=== PATIENT | female | born 1995 | race Caucasian/White ===

== ENCOUNTER 2024-08-09 12:11 | Outpatient (AMB) | payer OTHER, SELFPAY ==
--- NOTE | 2024-08-09 12:16 | A.OFFPC_ITS ---
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 ?? Prior PCP:? Pediatrics Last office visit/CPE:? > 2 yrs Acute issue(s):? Dif concentrating and pt says she was on Adderall long and short actig. Anxiety and was on SSRI but cause aggression and added the short acting Adderall. ?? PMHx:? Diff Concetrating and Pt states ADHD, Anxiety, SurgHx:? . FHx:? Mom: Depression. Brother: Depression. Dad: EtOH/Substance abuse SocHx:? Nonsmoker EtOH None. MJ Daily. 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 1. Little interest or pleasure in doing things: several days 2. Feeling down, depressed, or hopeless: more than half the days 3. Trouble falling or staying asleep, or sleeping too much: more than half the days 4. Feeling tired or having little energy: more than half the days 5. Poor appetite or overeating: more than half the days 6. Feeling bad about yourself - or that you are a failure or have let yourself or your family down: more than half the days 7. Trouble concentrating on things, such as reading the newspaper or watching television: nearly every day 8. Moving or speaking so slowly that other people could have noticed. Or the opposite - being so fidgety or restless that you have been moving around a lot more than usual: several days 9. Thoughts that you would be better off or of hurting yourself in some way: not at all Total score: 15 Depression Screening Interpretation: Positive Depression Screening Done: Yes 31317 - PHQ-9 Billing: Yes Source: Developed by Drs. Benedicto Salazar, Jessica Perez, Ulysses Dhillon and colleagues, with an educational anju from [employer]. Thrive Questionnaire Date Thrive assessed: 08/09/24 I am a: Patient What is your living situation today?: I have a steady place to live Within the past 12 months, did the food you bought not last and you didn't have the money to get more?: Never true Within the past 12 months, did you worry whether your food would run out before you got money to buy more?: Never true Do you have trouble paying for medicines?: No Do you have trouble getting transportation to medical appointments?: No Do you have trouble paying your heating and electricity bill?: No Do you have trouble taking care of your child, family member or friend?: No Do you have trouble with day-to-day activities such as bathing, preparing meals, shopping, managing finances, etc.?: No Are you currently unemployed and looking for a job?: No Are you interested in more education?: No Please select the resources that you would like help with: None Currently or been in a relationship where the following occur: I choose not to answer THRIVE Score: 0 AUDIT C Alcohol Use Questionnaire (AUDIT-C) 1. How often do you have a drink containing alcohol?: Never 3. How often do you have six or more drinks on one occasion?: Never Total Score: 0 FCO-7 AMB Questionnaire FCO-7 Date FCO - 7 assessed: 08/09/24 Feeling nervous, anxious, or on edge: 1 = Several days Not being able to stop or control worryin = Several days Worrying too much about different things: 1 = Several days Trouble relaxin = Several days Being so restless that it is hard to sit still: 1 = Several days Becoming easily annoyed or irritable: 2 = More than half the days Feeling afraid as if something awful might happen: 1 = Several days Total FCO-7 score (0-4 normal; 5-9 mild; 10-14 moderate; 15-21 severe): 8 Source: Developed by Drs. Benedicto Salazar, Jessica Perez, Ulysses Dhillon and colleagues, with an educational anju from [employer]. FCO-7 Assessment Billing FCO-7 Assessment Tool: FCO-7 Assessment 72162 Review of Systems Const Denies chills, Denies fatigue, Denies fever(s), Denies headache(s) and Denies weakness ENT Denies dizziness, Denies headache(s) and Reports sore throat Card Denies chest pain, Denies lightheadedness, Denies dyspnea and Denies other (Palpitations) Resp Denies cough, Denies dyspnea, Denies wheezing and Denies other ( shortness of breath) Musc Denies numbness and Denies tingling Neuro Denies dizziness, Denies headache(s), Denies numbness, Denies tingling, Denies paresthesias and Denies weakness Psych Denies anxiety and Denies depression Endo Denies fatigue Aller/Immun Denies wheezing Physical exam (Primary Care) Vital Signs: Last Vital Signs Temp 98.3 F 08/09/24 12:23 Pulse 89 08/09/24 12:23 Resp 16 08/09/24 12:23 BP 106/64 08/09/24 12:23 Pulse Ox 98 08/09/24 12:23 Oxygen Delivery Method Room Air 08/09/24 12:23 BMI result Body Mass Index 39.9 Tobacco/Smoking Status: Tobacco use Status Tobacco use date assessed 08/09/24 08/09/24 12:25 Patient Tobacco Use Status Never used Tobacco 08/09/24 12:25 e-Cigarette/Vaping Use Never Used 08/09/24 12:25 PHQ-9: PHQ-9 Score PHQ-9: Total score 15 08/09/24 12:25 Depression Screening Interpretation: Positive Thrive Assessment: Date of Thrive Assessment Date Thrive assessed 08/09/24 08/09/24 12:25 Currently or been in a relationship where the following occur: I choose not to answer Const General: no acute distress and well developed Nutritional Appearance: well nourished Orientation/consciousness: patient oriented x3 HENMT Head: Yes normocephalic and Yes atraumatic Eyes General: appearance normal, both eyes and all related structures Pupils: Equal, round and reactive pupils present EOM: EOMs intact bilaterally Resp Effort & Inspection: normal respiratory effort Auscultation: clear to auscultation bilaterally Cardio Rate: regular rate Rhythm: regular rhythm Heart sounds: S1 normal heart sound present, S2 normal heart sound present, no gallops, no murmurs and no rubs Neuro General: patient oriented x3 and gait normal Cranial nerves: Yes Equal, round and reactive pupils present Psych Affect: normal affect Results AMB Rapid Strep AMB Rapid Strep Positive Last Edit by TONIA Osuna on 08/09/24 13:03 Coding Level of Care Code New Pt Level 4 (17976) Diagnoses Difficulty concentrating R41.840 Anxiety F41.9 Sore throat J02.9 Laboratory exam ordered as part of routine general medical examination Z00.00 Additional Codes FCO-7 Assessment Billing - FCO-7 Assessment Tool: FCO-7 Assessment 91685 ([id number]) PHQ-9 - 97216 - PHQ-9 Billing: Yes ([id number]) Assessment & Plan Assessment & Plan (1) Difficulty concentrating: Code(s): R41.840 - Attention and concentration deficit Category: Medical Plan: Awaiting?prior?PCPs?notes?regarding?diagnosis?of?ADD/ADHD We?discussed?if?can?get?established,?we?need?to?have?evaluated.??And?patient?und erstands. (2) Anxiety: Code(s): F41.9 - Anxiety disorder, unspecified Category: Medical Plan: Patient?seems?to?feel?that?this?is?secondary?to?difficulty?concentrating Awaiting?prior?notes (3) Sore throat: Code(s): J02.9 - Acute pharyngitis, unspecified Category: Medical Plan: Patient?has?mild?cough?but?also?has?significant?posterior?pharyngeal?erythema ?with?patchy?exudates. Rapid?strep: POSITIVE Starting?amoxicillin?500?mg?b.i.d. Advised?hand?hygiene?and?avoid?cooking?and?using?utensils?for?children.??The?chi ldren?are?sick?also?and?should?checked?for?strep - patient?agrees (4) Laboratory exam ordered as part of routine general medical examination: Code(s): Z00.00 - Encounter for general adult medical examination without abnormal findings Category: Medical Plan: Check labs Orders: Orders Comprehensive [place]. Panel Fast Today Z00.00 - Encounter for general adult medical examination without abnormal findings Complete Blood Count Auto Diff Today Z00.00 - Encounter for general adult medical examination without abnormal findings Microalbumin, Random (w Creat) Today I10 - Essential (primary) hypertension Lipid Panel Today Z00.00 - Encounter for general adult medical examination without abnormal findings UA and rflx microscopic Today Z00.00 - Encounter for general adult medical examination without abnormal findings TSH reflex Free T4 Today Z00.00 - Encounter for general adult medical examination without abnormal findings AMB Rapid Strep Screen Today J02.9 - Acute pharyngitis, unspecified Medications: New amoxicillin 500 mg PO Q12H 10 days 20 tabs 0RF
[2024-08-09 12:23] VITALS: BP 106/64; PULSE 89; RESP 16; TEMP 36.8; O2SAT 98; BMI 39.9
== END 2024-08-09 13:02 | disposition home or self-care (01) ==
PROVIDERS: PCP Pediatrics; Visit Provider Family Medicine
DX: R41.840 Attention and concentration deficit (principal); F41.9 Anxiety disorder, unspecified; J02.9 Acute pharyngitis, unspecified; Z00.00 Encounter for general adult medical examination without abnormal findings

== ENCOUNTER → 2024-08-09 12:11 | Outpatient (BNVA) | payer OTHER, SELFPAY | PROVIDERS: PCP Pediatrics; Visit Provider Family Medicine | DX: F41.9 Anxiety disorder, unspecified (principal); J02.9 Acute pharyngitis, unspecified; R41.840 Attention and concentration deficit | CPT/HCPCS: 87880; 96127; 99202 ==

== ENCOUNTER 2025-01-04 11:25 | Outpatient (REF) | payer OTHER, SELFPAY ==
--- OUTSIDE RECORDS SUMMARY | 2025-01-04 13:41 | XMS_ITS | Encounter Summary ---
Author Organization [facility] Address [address] [place] [id number] Phone Care Team Providers Care Paster Operator Name Role Phone Valeria Carter MD Primary Care Provider [phone] Encounter Details Date Type Department Care Team (Late st Contact Info) Description 04/21/2017 Conversion Encounter [facility] - [address], [address] [place] [address] Valeria Carter MD [address] [place] [address] Social History Tobacco Use Types Packs/Day Years Used Date Smoking Tobacco: Never Assessed Comments Unknown Sex and Gender Information Value Date Recorded Sex Assigned at Not on file Legal Sex Female 9:38 AM EST Gender Identity Not on file Sexual Orientation Not on file documented as of this encounter Plan of Treatment Not on file documented as of this encounter Visit Diagnoses Not on filedocumented in this encounter Care Teams Paster Operator Relationship Specialty Start Date End Date Valeria Carter MD [address] [place] [address] PCP - General 11/03/16 07/19/22 documented as of this encounter
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
[2025-01-04 14:14] LABS: MANUAL DIFF FLAG NO
[2025-01-04 14:17] LABS: Appearance Urine Clear; Color Urine Yellow; Glucose Urine UA Negative (Negative); Leukocyte Esterase Urine Negative (Negative); Nitrite Urine Negative (Negative); Urine Blood Negative (Negative); Urine Ketones Negative (Negative); Urine Protein Negative (Neg-Trace)
[2025-01-04 14:22] LABS: Basophils Absolute Auto 0.1 X10*3/uL (0.0-0.2); Basophils Percent Auto 0.8 % (0-2); Eosinophils Absolute Auto 0.2 X10*3/uL (0.0-0.4); Eosinophils Percent Auto 1.8 % (0-4); Hematocrit 41.2 % (37.0-47.0); Hemoglobin 13.8 g/dl (12.0-16.0); Imm Gran Abs Auto 0.03 X10*3/uL (0.00-0.03); Imm Gran Pct Auto 0.4 % (0.0-0.4); Lymphocytes Absolute Auto 2.2 X10*3/uL (1.2-4.9); Lymphocytes Percent Auto 25.9 % (20-40); Mean Corpuscular HGB Conc 33.5 g/dl (31.0-35.0); Mean Corpuscular Hemoglobin 28.6 pg (27.0-33.0); Mean Corpuscular Volume 85.3 fL (80.0-98.0); Mean Platelet Volume 10.8 fL (9.4-12.3); Monocytes Absolute Auto 0.7 X10*3/uL (0.1-1.2); Monocytes Percent Auto 8.4 % (2-11); Neutrophils Absolute Auto 5.3 x10*3/uL (2.0-8.3); Neutrophils Percent Auto 62.7 % (45-73); Platelet Count 322 X10*3/uL (160-400); Red Blood Count 4.83 X10*6/uL (4.20-5.50); Red Cell Distribution Width 14.3 % (11.0-16.0); White Blood Count 8.5 X10*3/uL (4.8-10.8)
[2025-01-04 14:49] LABS: Alanine Aminotransferase 41 U/L (0-31); Albumin Level 4.1 g/dL (3.5-5.0); Alkaline Phosphatase 95 U/L (39-117); Anion Gap 6 (12-20); Aspartate Amino Transferase 28 U/L (5-31); Bilirubin Total 0.5 mg/dL (0.0-1.0); Blood Urea Nitrogen 9 mg/dL (9-16); Calcium 9.2 mg/dL (8.4-10.2); Carbon Dioxide 28 mmol/L (22-29); Chloride 108 mmol/L (96-108); Cholesterol 182 mg/dL (<200); Estimated Glomerular Filt Rate > 60; Glucose Fasting 91 mg/dL (60-99); HDL Cholesterol 44 mg/dL (>40); LDL Cholesterol Calculated 112 mg/dL (<100); Potassium 4.2 mmol/L (3.3-5.1); Sodium 138 mmol/L (135-145); Total Protein 7.2 g/dL (6.5-8.0); Triglycerides 130 mg/dL (<150)
[2025-01-04 14:51] LABS: TSH reflex Free T4 0.67 uIU/mL (0.32-4.0)
[2025-01-04 14:55] LABS: Creatinine Urine 100.61 mg/dL; Microalbumin Urine < 5.0 mg/L
== END 2025-01-04 11:26 | disposition home or self-care (01) ==
LOC: HO.WFDLDS 11:25
PROVIDERS: Visit Provider Family Medicine
DX: Z00.00 Encounter for general adult medical examination without abnormal findings (principal); I10 Essential (primary) hypertension
CPT/HCPCS: 36415; 80053; 80061; 81003; 82570; 84443; 85025

== ENCOUNTER 2025-01-25 10:54 | Outpatient (AMB) | payer OTHER, SELFPAY ==
--- NOTE | 2025-01-25 10:56 | A.OFFPC_ITS ---
Vital Signs 01/25/25 11:01 Height 5 ft 1 in Weight 219 lb BMI 41.4 BP 112/68 Blood Pressure Location Rt brachial Position Sitting Pulse 93 Pulse Source Pulse Oximeter Temp 98.6 F Temp Source Temporal Artery Scan Pulse Oximetry (%) 97 Oxygen Delivery Method Room Air Intake Visit Reasons: Physical / Dr. Aguilar PtDomitila Intake Note: Malathi presents in the office for her annual physical. Allergies Seasonal Allergies Allergy (Verified 01/25/25 10:59) Congestion Tobacco use date assessed: 01/25/25 Dental Screening Dental Screen Date: 01/25/25 Did you have a dental visit in the last 12 months?: No Did you have a dental problem in the last 6 months where you did not have access to dental care?: No Was dental information given to patient?: Yes HPI HPI Comments History of Present Illness Details This is a 29 year old female with a past medical history of anxiety and difficulty concentrating presenting for a physical exam. Patient reports she was on Adderall managed by her electronics installer. She signed a release for records, but they have not been received yet. This was discussed at her initial visit with her primary care provider. I advised the patient to call the office in a couple of weeks to see if the records are reviewed, and schedule a follow up with her primary care provider after that. She tried fluoxetine in the past for anxiety which caused aggression. She is due for a dental, optometry and gynecology exam. She will schedule these. ALT is mildly elevated. The remainder of her lab results are satisfactory. Denies abdominal pain, nausea, vomiting, jaundice or unexplained weight loss. She does have a lot of high cholesterol and processed foods in her diet. She drinks alcohol once a month or less, and she does not been strength. She does not take a lot of [id number] pain relievers. We discussed lifestyle modifications. Advised patient to return to the lab in a month to repeat tests and check hepatitis a, B and C tests. ROS: Constitutional: No unexplained weight loss, fever, chills or night sweats. Eyes: No vision changes, blurry vision, double vision, eye pain, eye redness, eye discharge. ENT: No hearing loss, sneezing, congestion, runny nose or sore throat. Respiratory: No shortness of breath, cough or sputum production. Cardiovascular: No chest pain, chest pressure or chest discomfort. No palpitations or pedal edema. Gastrointestinal: No anorexia, nausea, vomiting or diarrhea. No abdominal pain or blood in stool. Genitourinary: No dysuria, hematuria, urinary frequency. Neurologic: No headache, dizziness, syncope, unilateral weakness, ataxia, numbness or tingling in the extremities. Musculoskeletal: No muscle pain, back pain, joint pain or swelling. Hematologic/Lymphatics: No bleeding or bruising. No painful lymph nodes. Skin: No rash or new or changing moles. Endocrine: No cold or heat intolerance. No polyuria or polydipsia. Psychiatric: Denies depression, SI or HI. Physical exam: Constitutional: Alert, in no distress. Head: Normocephalic. Eyes: Pupils are equal, round and reactive to light. Extraocular muscles intact. Ear, Nose and Throat: Canals clear. TMs normal. Normal nasal mucosa. No nasal discharge. No oral lesions. Neck: Supple, Full range of motion. No lymphadenopathy. No palpable thyroid masses. Respiratory: Clear to auscultation. Cardiovascular: S1 S2 regular. No murmurs. Gastrointestinal: Abdomen soft, non-tender, non-distended. Normal bowel sounds. No palpable masses. Neurologic: No focal neurological deficits. Symmetric patellar reflexes. Moves all extremities spontaneously. Sensation intact bilaterally. Skin: No rashes Musculoskeletal: No gross deformities. Normal range of motion. Extremities: Warm and well perfused. No clubbing, cyanosis or edema. 3+ peripheral pulses bilaterally. Psychiatric: Normal mood and affect [facility] Medical History (Updated 01/25/25 @ 11:43 by MIGUEL ÁNGEL Pendleton) Routine physical examination Elevated liver function tests section wound seroma, Family History Paternal Grandfather Cancer Paternal Uncle Cancer Father Substance abuse Social History (Updated 01/25/25 @ 11:00 by Yulissa Burroughs MA) Housing: House Alcohol intake: never Patient Tobacco Use Status: Never used Tobacco e-Cigarette/Vaping Use: Never Used Substance Use Type: Marijuana service: No Current occupational status: employed Current occupation: [employer] Current occupational exposures/hazards: No Cognitive needs: No Hearing needs: No Vision needs: Yes Questionnaire PHQ-9 Over the last 2 weeks, how often have you been bothered by any of the following problems? 1. Little interest or pleasure in doing things: several days 2. Feeling down, depressed, or hopeless: not at all 3. Trouble falling or staying asleep, or sleeping too much: several days 4. Feeling tired or having little energy: several days 5. Poor appetite or overeating: not at all 6. Feeling bad about yourself - or that you are a failure or have let yourself or your family down: not at all 7. Trouble concentrating on things, such as reading the newspaper or watching television: several days 8. Moving or speaking so slowly that other people could have noticed. Or the opposite - being so fidgety or restless that you have been moving around a lot more than usual: several days 9. Thoughts that you would be better off or of hurting yourself in some way: not at all Total score: 5 Depression Screening Interpretation: Positive Depression Screening Follow-up: Other (waiting on medical records and sleep dysfunction is due to 3-year-old sleeping in her bed) Depression Screening Done: Yes 67339 - PHQ-9 Billing: Yes Source: Developed by Drs. Benedicto Salazar, Jessica Perez, Ulysses Dhillon and colleagues, with an educational anju from [employer]. Thrive Questionnaire Date Thrive assessed: 01/25/25 I am a: Patient What is your living situation today?: I have a steady place to live Within the past 12 months, did the food you bought not last and you didn't have the money to get more?: Never true Within the past 12 months, did you worry whether your food would run out before you got money to buy more?: Never true Do you have trouble paying for medicines?: No Do you have trouble getting transportation to medical appointments?: No Do you have trouble paying your heating and electricity bill?: No Do you have trouble taking care of your child, family member or friend?: No Do you have trouble with day-to-day activities such as bathing, preparing meals, shopping, managing finances, etc.?: No Are you currently unemployed and looking for a job?: No Are you interested in more education?: No Please select the resources that you would like help with: None Currently or been in a relationship where the following occur: No concerns reported THRIVE Score: 0 AUDIT C Alcohol Use Questionnaire (AUDIT-C) 1. How often do you have a drink containing alcohol?: Never Total Score: 0 Score Reviewed/Action Taken: No FCO-7 AMB Questionnaire FCO-7 Date FCO - 7 assessed: 01/25/25 Feeling nervous, anxious, or on edge: 2 = More than half the days Not being able to stop or control worryin = Not at all Worrying too much about different things: 1 = Several days Trouble relaxin = Several days Being so restless that it is hard to sit still: 0 = Not at all Becoming easily annoyed or irritable: 1 = Several days Feeling afraid as if something awful might happen: 0 = Not at all Total FCO-7 score (0-4 normal; 5-9 mild; 10-14 moderate; 15-21 severe): 5 Source: Developed by Drs. Benedicto Salazar, Jessica Perez, Ulysses Dhillon and colleagues, with an educational anju from [employer]. FCO-7 Assessment Billing FCO-7 Assessment Tool: FCO-7 Assessment 84842 Physical exam (Primary Care) Vital Signs: Last Vital Signs Temp 98.6 F 01/25/25 11:01 Pulse 93 01/25/25 11:01 BP 112/68 01/25/25 11:01 Pulse Ox 97 01/25/25 11:01 Oxygen Delivery Method Room Air 01/25/25 11:01 BMI result Body Mass Index 41.4 Tobacco/Smoking Status: Tobacco use Status Tobacco use date assessed 01/25/25 01/25/25 11:05 Patient Tobacco Use Status Never used Tobacco 01/25/25 11:00 e-Cigarette/Vaping Use Never Used 01/25/25 11:00 PHQ-9: PHQ-9 Score PHQ-9: Total score 5 01/25/25 11:05 Depression Screening Interpretation: Positive Depression Screening Follow-up: Other (waiting on medical records and sleep dysfunction is due to 3-year-old sleeping in her bed) Thrive Assessment: Date of Thrive Assessment Date Thrive assessed 01/25/25 01/25/25 11:05 Currently or been in a relationship where the following occur: No concerns reported Coding Level of Care Code Est Pt Prev Care 18-39y(29757) Diagnoses Routine physical examination Z00.00 Elevated liver function tests R79.89 Anxiety F41.9 Difficulty concentrating R41.840 Additional Codes FCO-7 Assessment Billing - FCO-7 Assessment Tool: FCO-7 Assessment 80220 ([id number]) PHQ-9 - 93185 - PHQ-9 Billing: Yes ([id number]) Assessment & Plan Assessment & Plan (1) Routine physical examination: Code(s): Z00.00 - Encounter for general adult medical examination without abnormal findings Category: Medical (2) Elevated liver function tests: Code(s): R7.89 - Other specified abnormal findings of blood chemistry Category: Medical (3) Anxiety: Code(s): F41.9 - Anxiety disorder, unspecified Category: Medical (4) Difficulty concentrating: Code(s): R41.840 - Attention and concentration deficit Category: Medical Plan Patient is seen today for a routine physical. As part of this visit we reviewed the following issues, which are considered and essential part of preventative health in this age group: - Breast Cancer screening - Annual Assistant Professor Nurse Education exam - Blood pressure screening - Cholesterol screening - Osteoporosis prevention including calcium/vitamin D intake, weight bearing exercise & smoking cessation - Nutritional and exercise counseling - Counseling of injury prevention including fire prevention, smoke alarms and seat belt usage - Screening for depression - Prevention of and/or testing for infectious diseases - Education about skin cancer - Recommendations about immunizations - Recommendation of an eye exam - Screening for substance abuse - Genetic cancer risk screening Orders: Orders Alanine Aminotransferase 4 Weeks R7 - Other specified abnormal findings of blood chemistry Aspartate Amino Transferase 4 Weeks R7.89 - Other specified abnormal findings of blood chemistry Hepatitis A,B,C Profile 4 Weeks R7. - Other specified abnormal findings of blood chemistry Hepatitis A IgM 4 Weeks R7.89 - Other specified abnormal findings of blood chemistry Patient Instructions: Repeat labs in 4 weeks. Please call the office the first week of February to see if your records were received and then schedule appointment with Dr. Gaffney when the office receives them.
[2025-01-25 11:01] VITALS: BP 112/68; PULSE 93; TEMP 37; O2SAT 97; BMI 41.4
--- OUTSIDE RECORDS SUMMARY | 2025-01-25 12:03 | XMS_ITS | Encounter Summary ---
Author Organization [facility] Address [address] [place] [phone] Phone Care Team Providers Care Programmer Developer Name Role Phone Unavailable Primary Care Provider Unavailabl e Reason for Visit * Reason Onset Date Comments [facility] Request 01/22/2025 Encounter Details Date Type Department Care Team ([facility] st Contact Info) Description 01/22/2025 Telephone [facility] [address] [place] [address] Phoenix Rg MD [address] [place] [address] [facility] Record Request Social History Tobacco Use Types Packs/Day Years Used Date Smoking Tobacco: Never Smokeless Tobacco: Never Comments:Counseled on mariju ronnie use Alcohol Use Standard Drinks/Week Comments No [...] on file documented as of this encounter Miscellaneous Notes * Telephone Encounter - Angely Montilla - 01/24/2025 4:36 PM EDT Printed and mailed records to: [facility] [address] [place] [id number] * Telephone Encounter - Jose Hilario - 01/22/2025 1:27 PM EDT Release received and scanned, please send records. documented in this encounter Plan of Treatment Not on file documented as of this encounter Visit Diagnoses Not on filedocumented in this encounter
--- OUTSIDE RECORDS SUMMARY | 2025-01-25 12:03 | XMS_ITS | Clinical Summary ---
Author Organization [facility] Address [address] [place] [phone] Phone Care Team Providers Care Manager Global Communications Name Role Phone Unavailable Primary Care Provider [...] protocol Gestational diabetes mellitus (GDM) in [facility] 04/26/2019 Overview (04/01/2020): 3 hour [...] Fluctuating weight over time, BMI 95-97%ile from 8648-3624. Now 92nd. Last labs 2013 normal. Last [...] Fluctuating weight over time, BMI 95-97%ile from 6293-3263. Now 92nd. Last labs 2013 normal. Weight loss 12/27/2015 10/23/2019 Irregular menstrual bleeding 09/17/2015 10/23/2019 Encounters Date Type Department Care Team Description 01/22/2025 Telephone [facility] - [address] [id number] [place] Rg MD [facility] [place] Request from Last 3 Months Immunizations Immunization Administration Dates Next Due DTaP [...] 01/15/2020 10/23/2019, 05/25/2014 Influenza Vaccines (#1) 2024 06/22/20, 07/01/2017, 06/07/2015, Additional history exists COVID-19 Vaccine ( season) 2024 11/13/2021, 10/23/2021 DTaP,Tdap,and Td Vaccines (9 - Td or Tdap) 03/27/2032 03/27/2022, 05/12/2019, 09/04/2008, Additional history exists Hepatitis B Vaccines Completed 10/08/1997, 01/11/1997, 1996 HIB Vaccines Completed 04/22/1998, 02/1997, 05/07/1997, Additional history exists IPV Vaccines Completed [...] complete this topic Procedures * Due to [place] state law, this organization might not be sharing sensitive test results. Procedure Name Priority Date/Time Associated Diagnosis Comments CHLAMYDIA TRACHOMATIS, AMPLIFIED Routine 07/01/2017 12:01 PM EDT Screening for chlamydial disease from Last 3 Months or Most Recently Relevant to Health Maintenance Results * Due to [place] state law, this organization might not be sharing sensitive test results. * Chlamydia trachomatis, Amplified (07/01/2017 12:01 PM EDT) Urine 07/01/2017 12:0 1 PM EDT us Valeria Carter MD LAB BLOOD ORDERABLES Final Res ult NONE from Last 3 Months or Most Recently Relevant to Health Maintenance
--- OUTSIDE RECORDS SUMMARY | 2025-01-25 12:03 | XMS_ITS | Encounter Summary ---
Author Organization [facility] Address [address] [place] [phone] Phone Care Team Providers Care Waste Cotton Cleaner Name Role Phone Valeria Carter MD Primary Care Provider [phone] Encounter Details Date Type Department Care Team (Late st Contact Info) Description 04/21/2017 Conversion Encounter [facility] Pediatric[facility] - [address], [address] [place] [address] Valeria Carter MD [address] [place] [address] Social History Tobacco Use Types Packs/Day Years [...] on filedocumented in this encounter Care Teams Waste Cotton Cleaner Relationship Specialty Start Date End Date Valeria Carter MD [address] [place] [address] PCP - General 11/03/16 07/19/22 documented as of this encounter
== END 2025-01-25 11:40 | disposition home or self-care (01) ==
LOC: HO.HMCFM 10:54
PROVIDERS: PCP Family Medicine; Visit Provider Physician Assistant Medical
DX: Z00.00 Encounter for general adult medical examination without abnormal findings (principal); R79.89 Other specified abnormal findings of blood chemistry; F41.9 Anxiety disorder, unspecified; R41.840 Attention and concentration deficit

== ENCOUNTER → 2025-01-25 10:54 | Outpatient (BNVA) | payer OTHER, SELFPAY | PROVIDERS: PCP Family Medicine; Visit Provider Physician Assistant Medical | DX: Z00.00 Encounter for general adult medical examination without abnormal findings (principal); R79.89 Other specified abnormal findings of blood chemistry; F41.9 Anxiety disorder, unspecified; R41.840 Attention and concentration deficit | CPT/HCPCS: 96127; 99395 ==

== ENCOUNTER 2025-04-17 15:42 | Outpatient (AMB) | payer OTHER, SELFPAY ==
--- NOTE | 2025-04-17 15:39 | MHC.PC.OV ---
Intake Visit Reasons: Medication review Intake Note: follow up for adhd medication patient was also informed she must sign a adhd med contract Industrial Economist Required: No Allergies Seasonal Allergies Allergy (Verified 04/17/25 15:40) Congestion Tobacco use date assessed: 01/25/25 Dental Screening Dental Screen Date: 01/25/25 HPI Medication review HPI Details 29 y/o female presents to f/u difficulty concentrating via telemedicine. Received patient's prior records which 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 She had been on Adderall XR 30 mg daily with good affect. 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 Current occupational exposures/hazards: No Cognitive needs: No Hearing needs: No Vision needs: Yes Questionnaire Thrive Questionnaire Date Thrive assessed: 01/25/25 I am a: Patient What is your living situation today?: I have a steady place to live Within the past 12 months, did the food you bought not last and you didn't have the money to get more?: Never true Within the past 12 months, did you worry whether your food would run out before you got money to buy more?: Never true Do you have trouble paying for medicines?: No Do you have trouble getting transportation to medical appointments?: No Do you have trouble paying your heating and electricity bill?: No Do you have trouble taking care of your child, family member or friend?: No Do you have trouble with day-to-day activities such as bathing, preparing meals, shopping, managing finances, etc.?: No Are you currently unemployed and looking for a job?: No Are you interested in more education?: No Please select the resources that you would like help with: None Currently or been in a relationship where the following occur: No concerns reported THRIVE Score: 0 AUDIT C Alcohol Use Questionnaire (AUDIT-C) 3. How often do you have six or more drinks on one occasion?: Never Total Score: 0 FCO-7 AMB Questionnaire FCO-7 Date FCO - 7 assessed: 01/25/25 Source: Developed by Drs. Benedicto Salazar, Jessica Perez, Ulysses Dhillon and colleagues, with an educational anju from [employer]. Review of Systems Const Denies chills, Denies fatigue, Denies fever(s), Denies headache(s) and Denies weakness ENT Denies dizziness and Denies headache(s) Card Denies dyspnea Resp Denies cough, Denies dyspnea, Denies wheezing and Denies other (shortness of breath) Musc Denies numbness and Denies tingling Neuro Denies dizziness, Denies headache(s), Denies numbness, Denies tingling and Denies weakness Psych Denies anxiety and Denies depression Endo Denies fatigue Aller/Immun Denies wheezing Physical exam (Primary Care) Tobacco/Smoking Status: Tobacco use Status Tobacco use date assessed 01/25/25 04/17/25 15:42 Patient Tobacco Use Status Never used Tobacco 04/17/25 15:42 e-Cigarette/Vaping Use Never Used 04/17/25 15:42 Thrive Assessment: Date of Thrive Assessment Date Thrive assessed 01/25/25 04/17/25 15:42 Currently or been in a relationship where the following occur: No concerns reported Telehealth Telehealth Telehealth Platform: Telephone Location of provider rendering services: practice address Location of patient: address on file Patient Identification confirmed using: Name, : Yes Telehealth method: voice only Patient verbally consented to treatment: Yes Patient verbally consented to billing insurance company: Yes Patient informed of any privacy concerns related to visit: Yes Minutes spent on Phone/Video with Pt.: 5 Coding Level of Care Code Tele Est Pt Level 2 (10434) Diagnoses ADHD F90.9 Assessment & Plan Assessment & Plan (1) ADHD: Code(s): F90.9 - Attention-deficit hyperactivity disorder, unspecified type Category: Medical Plan: Received patient's prior records which 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 She had been on Adderall XR 30 mg daily with good affect. We discussed that we can start Adderall XR treatment once she has signed a treatment contract We discussed that we expect her to bring her medications with her to visits for random pill counts and also to expect random urine testing periodically. Patient understands We discussed that we would start at a lower dose and titrate upwards. Will start with Adderall XR 10 mg daily and follow-up in 3-4 weeks.
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
--- OUTSIDE RECORDS SUMMARY | 2025-04-17 16:04 | XMS_ITS | Clinical Summary ---
Author Organization [facility] Address [address] [place] [phone] Phone Care Team Providers Care Clinical Editor Name Role Phone Unavailable Primary Care Provider [...] per protocol Gestational diabetes mellitus (GDM) in [facility] 04/26/2019 Overview (04/01/2020): 3 hour gtt: [...] Fluctuating weight over time, BMI 95-97%ile from 3126-6803. Now 92nd. Last labs 2013 normal. Last [...] Fluctuating weight over time, BMI 95-97%ile from 4611-8038. Now 92nd. Last labs 2013 normal. Weight loss 12/27/2015 10/23/2019 Irregular menstrual bleeding 09/17/2015 10/23/2019 Encounters Date Type Department Care Team Description 01/22/2025 Telephone [facility] - [address] [address] [place] Rg MD [facility] Record Request from Last 3 Months Immunizations [...] 93 12/16/2020 10:41 AM EDT Temperature 37.2 C (98.9 F) 08/20/2020 1:52 PM EST Respiratory Rate 18 08/20/2020 1:52 PM EST [...] (3 - 3-dose series) 01/15/2020 10/23/2019, 05/25/2014 COVID-19 Vaccine ( - season) 2024 11/13/2021, 10/23/2021 Influenza Vaccines (#1) 2025 06/22/20 19, 07/01/2017, 06/07/2015, Additional history exists DTaP,Tdap,and Td Vaccines (9 - Td or [...] complete this topic Procedures * Due to [place] state law, this organization might not be sharing sensitive test results. Procedure Name Priority Date/Time Associated Diagnosis Comments CHLAMYDIA TRACHOMATIS, AMPLIFIED Routine 07/01/2017 12:01 PM EDT Screening for chlamydial disease from Last 3 Months or Most Recently Relevant to Health Maintenance Results * Due to [place] state law, this organization might not be sharing sensitive test results. * Chlamydia trachomatis, Amplified (07/01/2017 12:01 PM EDT) Urine 07/01/2017 12:0 1 PM EDT us Valeria Carter MD LAB MICROBIOLOGY - GENERAL ORD ERABLES Final Result NONE from Last 3 Months or Most Recently Relevant to Health Maintenance
== END 2025-04-17 16:05 ==
LOC: HO.HMCFM 15:42
PROVIDERS: PCP Family Medicine; Visit Provider Family Medicine
DX: F90.9 Attention-deficit hyperactivity disorder, unspecified type (principal)

== ENCOUNTER 2025-06-26 13:59 | Outpatient (AMB) | payer OTHER, SELFPAY ==
--- NOTE | 2025-06-26 14:30 | A.OFFPC_ITS ---
Vital Signs 06/26/25 14:40 Height 5 ft 1 in Weight 207 lb BMI 39.1 BP 100/62 Blood Pressure Location Rt brachial Position Sitting Respiration 16 Pulse 82 Pulse Source Pulse Oximeter Temp 97.5 F Temp Source Temporal Artery Scan Pulse Oximetry (%) 96 Oxygen Delivery Method Room Air Intake Visit Reasons: f/u ADHD Intake Note: Paula presents in the office today for a follow up to ADHD. Allergies Seasonal Allergies Allergy (Verified 06/26/25 14:40) Congestion Tobacco use date assessed: 06/26/25 Dental Screening Dental Screen Date: 06/26/25 Did you have a dental visit in the last 12 months?: No Did you have a dental problem in the last 6 months where you did not have access to dental care?: No Was dental information given to patient?: Patient declined HPI f/u ADHD HPI Details 29 y/o female presents today to f/u ADHD . Starting her on Adderall today. 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 Current occupational exposures/hazards: No Cognitive needs: No Hearing needs: No Vision needs: Yes Questionnaire Thrive Questionnaire Date Thrive assessed: 01/25/25 I am a: Patient What is your living situation today?: I have a steady place to live Within the past 12 months, did the food you bought not last and you didn't have the money to get more?: Never true Within the past 12 months, did you worry whether your food would run out before you got money to buy more?: Never true Do you have trouble paying for medicines?: No Do you have trouble getting transportation to medical appointments?: No Do you have trouble paying your heating and electricity bill?: No Do you have trouble taking care of your child, family member or friend?: No Do you have trouble with day-to-day activities such as bathing, preparing meals, shopping, managing finances, etc.?: No Are you currently unemployed and looking for a job?: No Are you interested in more education?: No Please select the resources that you would like help with: None Currently or been in a relationship where the following occur: No concerns reported THRIVE Score: 0 FCO-7 AMB Questionnaire FCO-7 Date FCO - 7 assessed: 01/25/25 Source: Developed by Drs. Benedicto Salazar, Jessica Perez, Ulysses Dhillon and colleagues, with an educational anju from [employer]. Review of Systems Const Denies chills, Denies fatigue, Denies fever(s), Denies headache(s) and Denies weakness ENT Denies dizziness and Denies headache(s) Card Denies dyspnea Resp Denies cough, Denies dyspnea, Denies wheezing and Denies other (shortness of breath) Musc Denies numbness and Denies tingling Neuro Denies dizziness, Denies headache(s), Denies numbness, Denies tingling and Denies weakness Psych Denies anxiety and Denies depression Endo Denies fatigue Aller/Immun Denies wheezing Physical exam (Primary Care) Vital Signs: Last Vital Signs Temp 97.5 F 06/26/25 14:40 Pulse 82 06/26/25 14:40 Resp 16 06/26/25 14:40 BP 100/62 06/26/25 14:40 Pulse Ox 96 06/26/25 14:40 Oxygen Delivery Method Room Air 06/26/25 14:40 BMI result Body Mass Index 39.1 Tobacco/Smoking Status: Tobacco use Status Tobacco use date assessed 06/26/25 06/26/25 14:43 Patient Tobacco Use Status Never used Tobacco 06/26/25 14:40 e-Cigarette/Vaping Use Never Used 06/26/25 14:40 Thrive Assessment: Date of Thrive Assessment Date Thrive assessed 01/25/25 06/26/25 14:32 Currently or been in a relationship where the following occur: No concerns reported Const General: well developed; No acute distress Nutritional Appearance: well nourished Orientation/consciousness: patient oriented x3 HENMT Head: Yes normocephalic and Yes atraumatic Eyes General: appearance normal, both eyes and all related structures Pupils: Equal, round and reactive pupils present EOM: EOMs intact bilaterally Resp Effort & Inspection: normal respiratory effort Neuro General: patient oriented x3 and gait normal Cranial nerves: Yes Equal, round and reactive pupils present Psych Affect: normal affect Coding Level of Care Code Est Pt Level 3 (82447) Diagnoses ADHD F90.9 Obesity E66.9 Assessment & Plan Assessment & Plan (1) ADHD: Code(s): F90.9 - Attention-deficit hyperactivity disorder, unspecified type Category: Medical Plan: Patient presents for follow-up ADHD. At last visit we had established her diagnosis of ADHD with her prior provider's notes. Patient has signed treatment contract today We reviewed possible adverse effects. She had been on this medication before and was taking Adderall XR 30 mg daily. Will start with Adderall XR 10 mg daily and follow-up in about a month. May need to titrate up. (2) Obesity: Code(s): E66.9 - Obesity, unspecified Category: Medical Plan: Patient has been working on weight loss and has lost about 12 lb since last visit Continue working on weight loss Medications: New dextroamphetamine-amphetamine 10 mg ER (Adderall XR) MassPat Verified. Partial Fill upon patient request. 10 mg PO QAM 30 caps 0RF 30 days F90.9 - Attention-deficit hyperactivity disorder, unspecified type
[2025-06-26 14:40] VITALS: BP 100/62; PULSE 82; RESP 16; TEMP 36.4; O2SAT 96; BMI 39.1
--- OUTSIDE RECORDS SUMMARY | 2025-06-26 16:58 | XMS_ITS | Clinical Summary ---
Author Organization [facility] Address [address] [facility] [address] [place] [phone] Phone Care Team Providers Care Fitting Room Inspector Name Role Phone Valeria Carter MD Primary [...] per protocol Gestational diabetes mellitus (GDM) in [facility] 04/26/2019 Overview (05/01/2019): 3 hour gtt: 99 [...] has [facility] her [facility] [place] [facility]. Robert vax today. Assessment & Plan (05/26/2019 [...] Fluctuating weight over time, BMI 95-97%ile from 3306-6576. Now 92nd. Last labs 2013 normal. Assessment [...] STATUS SCREENING (Once After 26 Yrs) 2022 INFLUENZA VACCINE (#1) 2025 9, 07/01/2017, 06/07/2015, Additional history exists COVID-19 VACCINE ( season) 2025 11/13/2021, 10/23/2021 Adult Td,Tdap Booster 03/27/2032 03/27/2022 [...] SEE NARRATIVE - 01/05/2019 3:14 PM EDT [address] [address] [place] [employer]: Cassandra Garcia MD MONOGRAM MACHINE OPERATOR Cytology Report FINAL DIAGNOSIS A. PAP SMEAR (SUREPATH) CE: SPECIMEN ADEQUACY: Satisfactory for evaluation; transformation zone absent/insufficient. INTERPRETATION: NEGATIVE FOR INTRAEPITHELIAL LESION OR MALIGNANCY. Coccobacilli consistent with shift in katherine Electronically Signed Out By: JEY Freitas(ASCP) The Pap test is a screening test [...] A: PAP SMEAR (SUREPATH) CE Patient Name: HUNG ADAME : 1995 (Age: 23) Sex: F Institution: [facility] Location: [facility] Date of Collection: 12/29/2018 Date of Reported: 01/05/2019 15:14 Results to: Mayra Oconnell MD us Mayra Oconnell MD CYTOLOGY ORDERABLES Final Result Performing Organization Address City/[facility] Co de Phone Number SEE NARRATIVE * Hepatitis C antibody, qualitative (11/29/2018 11:41 AM EDT) HCV Negative Negative [facility] Comment: This is a screening test and should be confirmed with molecular testing Blood 11/29/2018 11:4 1 AM EDT 11/29/2018 11:59 AM EDT us Yulissa Roca CNM LAB BLOOD ORDERABLES Final Resul t Performing Organization Address [facility] Co de Phone Number [facility] [address] [place] [address] from Last 3 Months or Most Recently Relevant to Health Maintenance Insurance [facility] [employer] [facility] Member Subscriber Plan / Payer (Ef fective 2017-Present) Name:Hung Adame Relation to Subscriber:Self Name:Hung Adame Payer ID:[id number] (NAIC) Type:Medicaid Address: [place] [id number] [employer]ILDR[employer] CHILDRENS ACO CHILDR[employer] ACO [employer] CHILDR[employer] CHILDREN ACO Advance Directives For more information, please contact: [phone] (9AM - 5PM [facility], Wednesday-Wednesday) Documents on File Type Date Recorded Patient Inspector Bullet Slugs Expl anation Healthcare Proxy 07/20/2019 10:50 AM * Full Code (Presumed) (Latest Code Status on File) Date Activated Date Inactivated Comments 07/16/2019 12:34 AM 07/19/2019 3:34 PM * Full Code (Presumed) Date Activated Date Inactivated Comments 07/14/2019 8:08 PM 07/16/2019 12:34 AM * Full Code (Presumed) Date Activated Date Inactivated Comments 07/09/2019 2:57 PM 07/09/2019 6:31 PM Care Teams Fitting Room Inspector Relationship Specialty Start Date End Date Valeria Carter MD [address] [place] [address] [address] [place] [address] [email or web address] PCP - General 06/29/17 Additional Source Comments The information contained in this document represents components of the legal health record. It is not the complete legal health record.[facility]
--- OUTSIDE RECORDS SUMMARY | 2025-06-26 16:58 | XMS_ITS | Encounter Summary ---
Author Organization [facility] Address [address] [place] [address] Phone Care Team Providers Care Woodworking Machinist Name Role Phone Valeria Carter MD Primary Care Provider Encounter Details Date Type Department Care Team (Late st Contact Info) Description 04/25/2019 Transcribe Orders [facility] Laboratory [address] [place] [address] Yanelis Lala, LEÓN [address] [facility], [address] [place] [address] [email or web address] Elevated glucose tolerance test Social History Tobacco Use Types Packs/Day Years Used Date Smoking Tobacco: Never Smokeless Tobacco: Never Alcohol Use Standard Drinks/Week Comments Not Currently 0 (1 standard drink = 0.6 oz pur e alcohol) Comments Yes Sex and Gender Information Value Date Recorded Sex Assigned at Female 04/12/2018 6:27 PM EDT Legal Sex Female 8:50 PM EDT Gender Identity Female 04/12/2018 6:27 PM EDT Sexual Orientation Not on file Occupation Industry Job Start Date Job End Date [employer] Not on file Not on file Not on file documented as of this encounter Plan of Treatment Not on file documented as of this encounter Procedures Procedure Name Priority Date/Time Associated Diagnosis Comments GLUCOSE TOLERANCE TEST, 3 HR Routine 04/25/2019 11:55 AM EDT Elevated glucose tolerance test documented in this encounter Results * (ABNORMAL) Glucose tolerance test, 3 hr (04/25/2019 11:55 AM EDT) FASTING GLUCOSE 99 70 - 110 mg/dL [facility] ONE HR GLUCOSE 216(H) 70 - 99 mg/dL [facility] TWO HR GLUCOSE 211(H) 70 - 99 mg/dL [facility] THREE HR GLUCOSE 175(H) 70 - 99 mg/dL [facility] Blood 04/25/2019 11:5 5 AM EDT 04/25/2019 11:59 AM EDT Yanelis Lala [facility] LAB BLOOD ORDERABLES Fin al Result [facility] [address] [place] [address] documented in this encounter Visit Diagnoses Diagnosis Elevated glucose tolerance test Impaired glucose tolerance test documented in this encounter Care Teams Woodworking Machinist Relationship Specialty Start Date End Date Valeria Carter MD [address] [facility], [address] [place] [address] [email or web address] PCP - General 06/29/17 documented as of this encounter Additional Source Comments The information contained in this document represents components of the legal health record. It is not the complete legal health record.[facility]
--- OUTSIDE RECORDS SUMMARY | 2025-06-26 16:58 | XMS_ITS | Encounter Summary ---
Author Organization [facility] Address [address] [place] [id number] Phone Care Team Providers Care Nutritional Services Host Name Role Phone Valeria Carter MD Primary Care Provider [phone] Encounter Details Date Type Department Care Team (Late st Contact Info) Description 07/15/2019 Procedure Pass [facility] L&D Procedures [address] [place] [address] Social History Tobacco Use Types Packs/Day Years [...] on filedocumented in this encounter Care Teams Nutritional Services Host Relationship Specialty Start Date End Date Valeria Carter MD [address] [facility] [address] [place] [address] PCP - General 06/29/17 documented as of this encounter Additional Source Comments The information contained in this document represents components of the legal health record. It is not the complete legal health record.[facility]
--- OUTSIDE RECORDS SUMMARY | 2025-06-26 16:58 | XMS_ITS | Clinical Summary ---
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 Now 92nd. Last labs 2013 normal. Last [...] Fluctuating weight over time, BMI 95-97%ile from 4313-6429. Now 92nd. Last labs 2013 normal. Weight [...] series) 01/15/2020 10/23/2019, 05/25/2014 Influenza Vaccines (#1) 2025 06/22/20 19, 07/01/2017, 06/07/2015, Additional history exists COVID-19 Vaccine (2024- season) 2025 11/13/2021, 10/23/2021 DTaP,Tdap,and Td Vaccines (9 - [...] complete this topic Procedures * Due to [place] law, this organization might not be sharing sensitive test results. Procedure Name Priority Date/Time Associated Diagnosis Comments CHLAMYDIA TRACHOMATIS, AMPLIFIED Routine 07/01/2017 12:01 PM EDT Screening for chlamydial disease from Last 3 Months or Most Recently Relevant to Health Maintenance Results * Due to [place] law, this organization might not be sharing sensitive test results. * Chlamydia trachomatis, Amplified (07/01/2017 12:01 PM EDT) Urine 07/01/2017 12:0 1 PM EDT us Valeria Carter MD LAB MICROBIOLOGY - GENERAL ORD ERABLES Final Result NONE from Last 3 Months or Most Recently Relevant to Health Maintenance
--- OUTSIDE RECORDS SUMMARY | 2025-06-26 16:58 | XMS_ITS | Encounter Summary ---
Author Organization [facility] Address [address] [place] [address] Phone Care Team Providers Care Fire Hose Curer Name Role Phone Valeria Carter MD Primary Care Provider [phone] Encounter Details Date Type Department Care Team (Late st Contact Info) Description 04/21/2017 Conversion Encounter [facility] - [address], [address] [place] [address] Valeria Carter MD [address] [place] [address] Social History Tobacco Use Types Packs/Day Years [...] on filedocumented in this encounter Care Teams Fire Hose Curer Relationship Specialty Start Date End Date Valeria Carter MD [address] [place] [address] PCP - General 11/03/16 07/19/22 documented as of this encounter
== END 2025-06-26 14:52 | disposition home or self-care (01) ==
LOC: HO.HMCFM 14:00
PROVIDERS: PCP Family Medicine; Visit Provider Family Medicine
DX: F90.9 Attention-deficit hyperactivity disorder, unspecified type (principal); E66.9 Obesity, unspecified; Z68.39 Body mass index [BMI] 39.0-39.9, adult

== ENCOUNTER → 2025-06-26 13:59 | Outpatient (BNVA) | payer OTHER, SELFPAY | PROVIDERS: PCP Family Medicine; Visit Provider Family Medicine | DX: F90.9 Attention-deficit hyperactivity disorder, unspecified type (principal); E66.9 Obesity, unspecified; Z68.39 Body mass index [BMI] 39.0-39.9, adult | CPT/HCPCS: 99212 ==